=== PATIENT | male | born 1940 | race Caucasian/White ===

== ENCOUNTER 2017-01-23 08:41 | Day surgery (SDC) | payer OTHER, BC ==
[~2017-01-23] VITALS: Ht 170.2 cm; Wt 94.4 kg
[~2017-01-23 08:41] MED LIST: CALCITRATE + D1 EACH PO; CALCITRIOL0.5 MCG PO; COLACE100 MG PO; FOLIC ACID1 MG PO; FUROSEMIDE40 MG PO; HYTRIN2 MG PO; LANTUS 10100 UNITS/ SC; LEVAQUIN500 MG PO; LIPITOR20 MG PO; NOVOLOG 10100 UNITS/ SC; PRILOSEC20 MG PO; PRINIVIL10 MG PO; PROCARDIA XL30 MG PO; PROLENSA1.6 ML BOTH EYES; TUMS500 MG PO; VENTOLIN HFA18 GM IH
[2017-01-23 09:33] VITALS: BP 138/94
[2017-01-23 09:41] LABS: HEMATOCRIT 32.2 % (38.0-50.0); MCH 29.9 PG (29.0-34.0); MCHC 32.3 G/DL (30.0-36.0); MCV 92.5 FL (86-99); PLATELET COUNT 288 K/uL (156-360); RBC DIS.WIDTH-CV 14.2 % (11.8-14.6); RBC DIS.WIDTH-SD 48.2 % (39-53); RED BLOOD COUNT 3.48 M/uL (4.00-5.50); WHITE BLOOD COUNT 9.9 K/uL (4.1-10.2)
[2017-01-23 09:47] LABS: ANION GAP 13 MEQ/L (2-14); CHLORIDE 98 MEQ/L (99-109); GFR ESTIMATE (CALCULATED) 11 mL/min/; GLUCOSE 137 mg/dL (70-99); POTASSIUM 3.5 MEQ/L (3.7-5.4); SAMPLE HEMOLYSIS CHECK 0; SAMPLE ICTERIC CHECK 0; SAMPLE LIPEMIA CHECK 0; SODIUM 141 MEQ/L (136-147); UREA NITROGEN (BUN) 51 mg/dL (9-23)
[2017-01-23 09:55] LABS: POINT-OF-CARE METER ID UU14174212
[2017-01-23 10:31] LABS: METH RESISTANT S AUREUS PCR NEGATIVE (NEGATIVE)
[2017-01-23 10:32] LABS: PROBE CHECK PASS; SPECIMEN PROCESSING CONTROL PASS
[2017-01-23 10:47] LABS: POINT-OF-CARE METER ID UU13113675
[2017-01-23 11:50] VITALS: BP 129/63
[2017-01-23 12:24] VITALS: BP 124/60
== END 2017-01-23 12:44 | disposition home or self-care (01) ==
LOC: SDC 08:41
PROVIDERS: Surgery
PROC: 0WPG33Z Removal of Infusion Device from Peritoneal Cavity, Percutaneous Approach (ICD-10-PCS; principal; 2017-01-23)
DX: Z49.01 Encounter for fitting and adjustment of extracorporeal dialysis catheter (principal); I12.0 Hypertensive chronic kidney disease with stage 5 chronic kidney disease or end stage renal disease; E11.22 Type 2 diabetes mellitus with diabetic chronic kidney disease; N18.6 End stage renal disease; Z99.2 Dependence on renal dialysis; E78.5 Hyperlipidemia, unspecified; M19.90 Unspecified osteoarthritis, unspecified site; Z88.5 Allergy status to narcotic agent; Z87.891 Personal history of nicotine dependence; Z83.3 Family history of diabetes mellitus; Z82.49 Family history of ischemic heart disease and other diseases of the circulatory system; Z84.1 Family history of disorders of kidney and ureter; Z80.6 Family history of leukemia
CPT/HCPCS: 80048; 82948; 85027; 87641; 94640; J0131; J0690; J2250; J2405; J3010